=== PATIENT | female | born 1940 | race Caucasian/White ===

== ENCOUNTER 2022-07-08 17:30 | Outpatient (CLI) | payer MEDICARE, BC | END 2022-07-08 17:31 | disposition home or self-care (01) | LOC: SLEEPLAB 17:30 | PROVIDERS: ATTEND Physical Medicine & Rehabilitation | DX: G47.33 Obstructive sleep apnea (adult) (pediatric) (principal); G47.9 Sleep disorder, unspecified; R53.83 Other fatigue; F32.A Depression, unspecified; E66.9 Obesity, unspecified; F41.9 Anxiety disorder, unspecified; I10 Essential (primary) hypertension; G47.00 Insomnia, unspecified; Z68.43 Body mass index [BMI] 50.0-59.9, adult | CPT/HCPCS: 95800 ==

== ENCOUNTER 2022-08-04 19:00 | Outpatient (CLI) | payer MEDICARE, BC | END 2022-08-04 19:01 | disposition home or self-care (01) | LOC: SLEEPLAB 19:00 | PROVIDERS: ATTEND Family Medicine | DX: G47.33 Obstructive sleep apnea (adult) (pediatric) (principal); G47.9 Sleep disorder, unspecified | CPT/HCPCS: 95811 ==